=== PATIENT | female | born 1980 | race African-American/Black ===

== ENCOUNTER 2016-11-19 08:45 | Emergency (ER) | payer BC, MEDICAID ==
[~2016-11-19] VITALS: Ht 165.1 cm; Wt 80.7 kg
[2016-11-19 09:05] VITALS: BP 117/64
[2016-11-19] MEDS ORDERED: Cyclobenzaprine 10mg Tab ORAL ONE (09:30)
[2016-11-19] MEDS ORDERED: CYCLOBENZAPRINE10 MG ORAL (10:32)
[2016-11-19] MEDS ORDERED: IBUPROFEN600 MG ORAL (10:32)
--- NOTE | 2016-11-19 10:32 | Diagnostic Imaging Report ---
Indication: Back pain Comparison: None Findings: 3 views of the lumbar spine were obtained. No acute fracture or malalignment is identified. Vertebral body heights and disk spaces are well maintained. Posterior elements are unremarkable. Impression: No acute findings.
[2016-11-19 10:45] VITALS: BP 111/69
--- NOTE | 2016-11-19 11:25 | Diagnostic Imaging Report ---
Indication: Back pain Findings: 2 views of the thoracic spine were obtained. Normal bony mineralization and alignment are demonstrated. Vertebral body heights and intervertebral disc heights are normal. The posterior elements including the facets are unremarkable. Soft tissues are unremarkable. Impression: Negative thoracic spine series
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
== END 2016-11-19 10:51 | disposition home or self-care (01) ==
LOC: EMR 09:21
DX: M54.9 Dorsalgia, unspecified (principal); M54.5 Low back pain; V49.9XXA Car occupant (driver) (passenger) injured in unspecified traffic accident, initial encounter; Y93.9 Activity, unspecified; Y99.9 Unspecified external cause status
CPT/HCPCS: 72020; 72070; 81025; 99284